=== PATIENT | female | born 1925 | race Caucasian/White ===

== ENCOUNTER 2016-10-02 10:09 | Emergency (ER) | payer MEDICARE ==
--- NOTE | 2016-10-02 10:40 | ERNOTE ---
Medical Problem HPI - Narrative Date of Service: 10/02/16 - nausea no vomiting - General Chief Complaint: Nausea/Vomiting Time Seen by Provider: 10/02/16 10:27 Source: patient, family, old records - Immun/Allergies/Home Medications Immunizations: IMMUNIZATION HX History of Influenza Vaccine No Hx Pneumococcal Vaccination No Allergies/Adverse Reactions: Allergies No Known Allergies Allergy (Verified 10/02/16 10:20) Home Medications: HOME MEDICATIONS Hydrochlorothiazide [Hydrodiuril] 12.5 mg PO DAILY 05/02/15 [Last Taken Unknown] Lisinopril [Zestril] 20 mg PO DAILY 05/02/15 [Last Taken Unknown] Metoprolol Succinate [Toprol Xl] 50 mg PO DAILY 05/02/15 [Last Taken Unknown] Naproxen [Naprosyn] 500 mg PO BID PRN #60 tab 05/02/15 [Last Taken Unknown] Omeprazole [Prilosec] 20 mg PO BID 05/02/15 [Last Taken Unknown] Simvastatin [Zocor] 10 mg PO DAILY 05/02/15 [Last Taken Unknown] Lactobacillus Combination No.4 [Probiotic] 1 each PO DAILY 09/18/16 [Last Taken Unknown] - History of Present History Narrative: Alejandra is an 89 yo female with onset of nausea about 7:45 this am. This was associated with eating breakfast. Patient denied emesis, denies prior problems with the food she ate. Patient denies chest pain, sob, associated abdominal pain , flank pain , constipation, dysuria, prior history of nausea. Patient denies any fever, chills, diarrhea, melena, last bm is unsure of yesterday, none today. Date (Duration): 10/02/16 Time (Timing): 07:45 Timing: constant Severity: moderate Modifying Factors - (Worsens): Present: eating - started after eating at 745 am. Review of Systems - Narrative Narrative: hx of prior abdominal surgeries, had gallbladder, appendix, uterus all out. - Review of Systems Constitutional: Present: See HPI, malaise, other EYE: Present: no symptoms reported, other - hx of cataracts ENT: Present: no symptoms reported Respiratory: Present: no symptoms reported Cardiology: Present: no symptoms reported Gastrointestinal/Abdominal: Present: See HPI, nausea. Absent: vomiting, diarrhea, constipation, abdominal pain Genitourinary: Present: no symptoms reported Musculoskeletal: Present: no symptoms reported Skin: Present: no symptoms reported Neurological: Present: no symptoms reported Endocrine: Present: no symptoms reported, unexplained weight loss Psych: Present: no symptoms reported All Other Systems: All systems neg except as marked - Narrative Narrative: Reviewed all pmhx, pshx, and all medications, & allergies - Patient's Past Medical History Patient History - Medical: Chronic Pain, GERD Patient History - Cardiac/Respiratory: Atrial Fibrillation, Hypertension, Hyperlipidemia Patient History - Cancer: No Hx of Cancer Patient History - Surgical Procedures: Appendectomy, Cataracts, Cholecystectomy , Hysterectomy - Family History Mother Family History - Medical: Family History - Cardiac/Respiratory: No pertinent hx Father Family History - Medical: Family History - Cardiac/Respiratory: CVA/Stroke - Social History Living Situations: alone Abuse History: No History of abuse Psych History: No pertinent hx Smoking Status: Never smoker Have you smoked in the past 12 months: No Alcohol Use: none Drug Use: none - Immunizations Hx Pneumococcal Vaccination: No History of Influenza Vaccine: No Physical Exam - Physical Exam General Appearance: Present: wd/wn, alert Eye Exam: Normal inspection: bilateral, PERRL: bilateral - bilat cataracts , EOMI: bilateral Ears, Nose, Throat: Present: normal ENT inspection Neck: Present: normal inspection, nontender Respiratory: Present: no respiratory distress, normal breath sounds, no accessory muscle use, chest nontender, lungs clear Cardiovascular/Chest: Present: no murmur, normal peripheral pulses, irregularly irregular Peripheral Pulses: N=norm/S=strong/W=weak/B=bound/A=absent: Carotid (R): Normal , Carotid (L): Normal, Radial (R): Normal, Radial (L): Normal Gastrointestinal/Abdominal: Present: normal bowel sounds, nontender, nondistended, no organomegaly Rectal Exam: Present: deferred Back Exam: Present: normal inspection, normal range of motion, no CVA tenderness , no vertebral tenderness Extremity Exam: Present: normal inspection, normal range of motion, no edema Neurological Exam: Present: alert, oriented, normal mood/affect, no motor/ sensory deficits Skin Exam: Present: normal color, warm/dry Lymphatic Exam: Present: no adenopathy Pelvic Exam: Present: deferred ED Progress - Results and Orders Patient's Lab Results:: I have reviewed the patient's lab results. Results and Orders: Laboratory Tests 10/02/16 10/02/16 11:10 11:10 WBC 12.1 H RBC 4.76 Hgb 14.6 Hct 44.2 MPV 10.1 H Immature Gran % (Auto) 0.60 H Immature Gran # (Auto) 0.07 H Neutrophils # 8.3 H Lymphocytes # 2.9 Sodium 141 Plasma Sodium 142 Potassium 3.6 Chloride 105 Carbon Dioxide 25.5 Anion Gap 14.1 H BUN 28 H BUN/Creatinine Ratio 25.7 H Random Glucose 141 H Troponin I Less than 0.017 B-Natriuretic Peptide 611 H - Vital Signs Patient's Vital Signs:: I have reviewed the patient's vital signs. Vital Signs: Vital Signs 10/02/16 10:17 Temperature 36.5 C Pulse Rate 91 Respiratory 14 Rate Blood Pressure 166/92 O2 Sat by Pulse 94 Oximetry - EKG EKG: nonspecific ST T wave changes, other - considerable change from prior EKG, from july 28, 2008 st t wave flattening concerning for ischemia - Progress/Reassessment Chief Complaint: Nausea/Vomiting Progress:: Improved - post ondansteron Departure - Departure Clinical Impression: Constipation Qualifiers: Constipation type: slow transit constipation Qualified Code(s): K59.01 - Slow transit constipation Disposition: [place] self-care Condition: Good Instructions: Constipation, Adult, [id number], Fecal Impaction Additional Instructions: Complete the Magnesium citrate tomorrow if you do not have a bowel movement today. you were given ducolax and half of the bottle of magnesium citrate in the Emergency Department. FOLLOW UP WITH YOUR DOCTOR IF YOU HAVE NO RESULTS FROM THE ABOVE TREATMENT Referrals: Deysi Harper MD [Primary Care Provider] -
[2016-10-02] MEDS ORDERED: ONDANSETRON 4 MG TAB.RAPDIS PO ONE (10:54)
[2016-10-02] MEDS ORDERED: ONDANSETRON 4 MG TAB.RAPDIS ONE (10:57)
[2016-10-02 11:14] LABS: Hematocrit 44.2 % (37.0-47.0); Hemoglobin 14.6 gm/dL (12.5-16.0); Mean Cell Volume 92.9 fl (78-100); Mean Corpuscular Hemoglobin 30.7 pg (27-31); Mean Platelet Volume 10.1 fl (6.0-9.5); Neutrophil # 8.3 K/mm3 (1.3-6.0); Neutrophil % 68.7 % (42-75.0); Platelet Count 319 K/mm3 (150-450); Red Blood Count 4.76 M/mm3 (4.2-5.4); White Blood Count 12.1 K/mm3 (4.0-10.5)
[2016-10-02 11:35] LABS: Troponin I Less than 0.017 ng/ml (0.00-0.10)
[2016-10-02 11:37] LABS: ALT 32 U/L (19-67); AST 18 U/L (0-48); Alkaline Phosphatase * 128 U/L (50-170); Anion Gap 14.1 mmol/L (6.8-13.8); BNP * 611 pg/mL (5-550); BUN/Creatinine Ratio 25.7 (9.0-21.6); Bilirubin, Total 0.5 mg/dL (0.0-1.1); Blood Urea Nitrogen 28 mg/dL (3-23); Ca. Corrected For Albumin 9.3 mg/dL (8.4-10.2); Calcium * 9.6 mg/dL (7.9-10.9); Carbon Dioxide 25.5 mmol/L (24-32.6); Chloride 105 mmol/L (97-106); Glucose * 141 mg/dL (70-110); Lipase 77 U/L (73-393); Potassium 3.6 mmol/L (3.4-4.6); Sodium 141 mmol/L (132-142); Total Protein 7.5 gm/dL (6.2-8.2)
[2016-10-02] MEDS ORDERED: BISACODYL 5 MG TABLET.DR ONE (13:19)
[2016-10-02] MEDS ORDERED: MAGNESIUM CITRATE 300 ML BTL ONE (13:19)
[2016-10-02 13:24] VITALS: BP 184/97
[2016-10-02] MEDS ORDERED: BISACODYL 5 MG TABLET.DR PO ONE (13:29)
[2016-10-02] MEDS ORDERED: MAGNESIUM CITRATE 300 ML BTL PO ONE (13:29)
== END 2016-10-02 13:50 | disposition home or self-care (01) ==
LOC: ER 10:09
DX: K59.01 Slow transit constipation (principal); R11.0 Nausea